=== PATIENT | female | born 1990 | race Caucasian/White ===

== ENCOUNTER → 2023-05-07 09:05 | Outpatient (CLI) | payer OTHER, SELFPAY ==
--- NOTE | 2023-05-07 | DI.US.S_ITS ---
ULTRASOUND OF RIGHT BREAST: 05/07/2023 CLINICAL: Patient returns today to evaluate a focal asymmetry in the right breast. Comparison is made to exam dated: 05/07/2023 mammogram - [facility]. Color flow and real-time ultrasound of the right breast were performed on the areas of interest. There is a 0.8 cm x 0.4 cm x 0.6 cm oval mass in the right breast at 3 o'clock middle depth. This oval mass is hypoechoic with a well-defined boundary, internal echoes, and posterior acoustic enhancement. This correlates with mammography findings. Color flow imaging demonstrates that there is no vascularity present. There also is a benign lymph node in the right breast at 10 o'clock posterior depth. This correlates with mammography findings. IMPRESSION: PROBABLY BENIGN The 0.8 cm x 0.4 cm x 0.6 cm oval mass in the right breast at 3 o'clock middle depth is consistent with a complicated cyst or a fibroadenoma and is probably benign. A follow-up ultrasound in 6 months is recommended. The lymph node in the right breast at 10 o'clock posterior depth is benign. This exam was interpreted at Station ID: [id number]. Electronically Signed By: Cynthia hope/:05/07/2023 10:56:05 letter sent: Followup Recommended Ultrasound BI-RADS: 3 Probably benign
--- NOTE | 2023-05-07 | DI.US.S_ITS ---
LIMITED ULTRASOUND OF LEFT BREAST AND AXILLA: 05/07/2023 CLINICAL: Palpable left axilla lump by patient. Comparison is made to exam dated: 05/07/2023 mammogram - [facility]. Color flow ultrasound of the left breast axilla was performed on the areas of interest. Cameron scale images of the real-time examination were reviewed. There are multiple benign appearing lymph nodes in the left axillary tail. These correlate as palpated and with mammography findings. IMPRESSION: BENIGN There is no sonographic evidence of malignancy. The multiple lymph nodes are consistent with a lymph node and are benign. This exam was interpreted at Station ID: [id number]. Electronically Signed By: Cynthia Lozoya M.D. lk/:05/07/2023 11:09:36 letter sent: Clinical Evaluation Ultrasound BI-RADS: 2 Benign
--- NOTE | 2023-05-07 | DI.MG.S_ITS ---
BILATERAL DIGITAL DIAGNOSTIC MAMMOGRAM 3D/2D: 05/07/2023 CLINICAL: Left axillary lump, CBE performed, Baseline exam. No prior exams were available for comparison. There are scattered areas of fibroglandular density in both breasts (category b / 25%-50% glandular tissue). There is a focal asymmetry with grouped calcifications in the right breast at 2 o'clock middle depth. There also is a focal asymmetry in the right breast at 10 o'clock posterior depth. There is a cluster of asymmetries in the left breast posterior depth superior region seen on the mediolateral oblique view only. No other significant masses or calcifications are seen in either breast. IMPRESSION: INCOMPLETE: NEEDS ADDITIONAL IMAGING EVALUATION The focal asymmetry in the right breast at 2 o'clock middle depth is indeterminate. The focal asymmetry in the right breast at 10 o'clock posterior depth likely represents a lymph node and is indeterminate. The cluster of asymmetries in the left breast posterior depth superior region seen on the mediolateral oblique view only likely represents a cluster of lymph nodes and is indeterminate. A targeted ultrasound of the bilateral breasts is recommended and will be performed immediately following this exam. Based on the Tyrer Cuzick model (a risk assessment model) the patient's lifetime risk is 11.9% and her 10 year risk is 0.7%. According to the ACR, ACS, and NCCN guidelines, an annual breast MRI exam along with mammogram is recommended if the patient's lifetime risk is 20% or greater. This exam was interpreted at Station ID: [id number]. NOTE: For mammograms, a report in lay terms will be sent to the patient. Approximately 15% of breast malignancies will not be visualized mammographically. In the management of a palpable breast mass, a negative mammogram must not discourage biopsy of a clinically suspicious lesion. Electronically Signed By: Cynthia Lozoya M.D. lk/:05/07/2023 10:32:19 ACR BI-RADS Category 0: Incomplete 3340F
== END ==
PROVIDERS: PCP Physician Assistant; Referring Provider Physician Assistant; Visit Provider Physician Assistant
DX: R22.2 Localized swelling, mass and lump, trunk (principal); N64.89 Other specified disorders of breast; N63.11 Unspecified lump in the right breast, upper outer quadrant
CPT/HCPCS: 76642; 77066; G0279

== ENCOUNTER → 2023-11-06 12:11 | Outpatient (CLI) | payer OTHER, SELFPAY ==
--- NOTE | 2023-11-06 | DI.US.S_ITS ---
LIMITED ULTRASOUND OF RIGHT BREAST: 11/06/2023 CLINICAL: 6 month follow-up of cysts. Comparison is made to exams dated: 05/07/2023 ultrasound, 05/07/2023 ultrasound, and 05/07/2023 mammogram - . Color flow ultrasound of the right breast 3 o'clock region was performed. Cameron scale images of the real-time examination were reviewed. There is a 0.8 cm x 0.8 cm x 0.3 cm oval complicated cyst in the right breast at 3 o'clock anterior depth 1 cm from the nipple. This oval complicated cyst is hypoechoic with a well-defined boundary and posterior acoustic enhancement. This abnormality is not significantly changed. Color flow imaging demonstrates that there is no vascularity present. IMPRESSION: PROBABLY BENIGN The 0.8 cm complicated cyst in the right breast most likely is a complicated cyst, could be a small fibroadenoma, and is probably benign. A follow-up ultrasound in 6 months is recommended. Findings and recommendations were conveyed to the patient at time of exam. This exam was interpreted at Station ID: [id number]. Electronically Signed By: Nu martinez/:11/06/2023 13:09:29 letter sent: Followup Recommended Ultrasound BI-RADS: 3 Probably benign
== END ==
LOC: US 12:12
PROVIDERS: PCP Physician Assistant; Referring Provider Nurse Practitioner Family; Visit Provider Physician Assistant
DX: N63.10 Unspecified lump in the right breast, unspecified quadrant (principal); N60.01 Solitary cyst of right breast
CPT/HCPCS: 76642